=== PATIENT | female | born 1965 | race Hispanic/Latino ===

== ENCOUNTER → 2024-12-19 | Outpatient (CLI) | payer OTHER, MEDICAID ==
--- NOTE | 2024-12-22 23:24 | HMCIMG ---
EXAM: Nuclear Medicine Gastric Emptying Scan. INDICATION: Burping and left upper quadrant pain. REFERENCE EXAMINATION: None. TECHNIQUE: 1.5 mCi of Tc99m sulfur colloid with eggs. FINDINGS: Transit of radiopharmaceutical is seen from the stomach into the small bowel. 50% gastric emptying achieved in 77 minutes. IMPRESSION: Scintigraphic findings suggest normal gastric emptying. /Rena
== END | disposition home or self-care (01) ==
LOC: RAH 07:03
PROVIDERS: ATTEND Internal Medicine Gastroenterology
DX: R10.12 Left upper quadrant pain (principal); R14.2 Eructation
CPT/HCPCS: 78264; A9541